=== PATIENT | male | born 1975 | race Caucasian/White ===

== ENCOUNTER 2023-10-10 06:27 | Emergency (ER) | payer BC ==
[2023-10-10] MEDS: Sodium Chloride 0.9% 500 ML IV SCH (06:49)
[2023-10-10] MEDS: Sodium Chloride 0.9% 2.5 ML Syringe FLUSH PRN (06:50)
[2023-10-10 06:51] LABS: BASOPHILS ABSOLUTE AUTO 0.15 K/uL (0.00-0.20); BASOPHILS PERCENT AUTO 1.9 % (0.0-1.0); EOSINOPHILS ABSOLUTE AUTO 0.11 K/uL (0.00-0.45); EOSINOPHILS PERCENT AUTO 1.4 % (0.0-6.0); HEMATOCRIT 46.9 % (42.0-52.0); HEMOGLOBIN 15.8 g/dL (14.0-18.0); IMMATURE GRAN ABSOLUTE AUTO 0.04 K/uL (0.00-0.05); IMMATURE GRAN PERCENT AUTO 0.5 % (0.0-0.4); LYMPHOCYTES ABSOLUTE AUTO 1.61 K/uL (1.00-4.80); LYMPHOCYTES PERCENT AUTO 20.7 % (24.0-44.0); MEAN CORPUSCULAR HEMOGLOBIN 33.5 pg (28.0-32.0); MEAN CORPUSCULAR HGB CONC 33.7 g/dL (32.0-36.0); MEAN CORPUSCULAR VOLUME 99.4 fL (83.0-99.0); MEAN PLATELET VOLUME 11.3 fL (9.4-12.4); MONOCYTES ABSOLUTE AUTO 0.95 K/uL (0.00-0.80); MONOCYTES PERCENT AUTO 12.2 % (0.0-8.0); NEUTROPHILS ABSOLUTE AUTO 4.91 K/uL (1.80-7.70); NEUTROPHILS PERCENT AUTO 63.3 % (41.0-71.0); PLATELET COUNT,PLT 196 K/uL (150-400); RED BLOOD CELL COUNT 4.72 M/uL (4.52-5.90); WHITE BLOOD CELL COUNT,WBC 7.77 K/uL (3.9-11.3)
[2023-10-10] MEDS: Sodium Chloride 0.9% 10 ML Syringe FLUSH PRN (06:51)
[2023-10-10 07:15] LABS: ALANINE AMINOTRANSFERASE,ALT 85 IU/L (14-63); ALBUMIN 3.5 g/dL (3.4-5.0); ALKALINE PHOSPHATASE 67 U/L (46-116); ASPARTATE AMNIOTRANSFERASE,AST 51 IU/L (15-37); BLOOD UREA NITROGEN,BUN 12 mg/dL (7.0-18.0); CALCIUM 8.7 mg/dL (8.5-10.1); CARBON DIOXIDE,CO2 26.2 mmol/L (21.0-32.0); CHLORIDE,CL 101 mmol/L (98-107); CREATININE 1.1 mg/dL (0.8-1.3); EST CRCL DRUG DOSING (CG) 87.47 mL/min; ETHANOL BLOOD MEDICAL <3 mg/dL; GLUCOSE RANDOM 151 mg/dL (74-106); LIPASE 36 U/L (16-77); POTASSIUM,K 3.9 mmol/L (3.5-5.1); PROTEIN TOTAL,TP 6.9 g/dL (6.4-8.2); SODIUM,NA 138 mmol/L (136-148)
[2023-10-10 07:18] LABS: ESTIMATED GFR 83 mL/min (>60)
[2023-10-10] MEDS: Potassium Chloride 20 MEQ Tab.ER PO ONE (08:07)
[2023-10-10] MEDS: Furosemide 20 MG/2 ML VIAL IVPUSH ONE (08:08)
== END 2023-10-10 09:23 | disposition home or self-care (01) ==
LOC: MW.ED 06:27
DX: F10.239 Alcohol dependence with withdrawal, unspecified (principal); I11.0 Hypertensive heart disease with heart failure; I50.9 Heart failure, unspecified; Y90.1 Blood alcohol level of 20-39 mg/100 ml; Z79.899 Other long term (current) drug therapy
CPT/HCPCS: 36415; 71045; 80053; 80307; 83690; 84484; 85025; 96374; 96375; 99285; A9270; J1940; J3360; J3490; J7040; 93010; 99284